=== PATIENT | male | born 1970 | race Two or more races ===

== ENCOUNTER 2022-03-21 14:17 | Emergency (ER) | payer MEDICAID ==
[~2022-03-21] VITALS: Ht 170.2 cm; Wt 81.6 kg
[2022-03-21 14:38] VITALS: BP 105/65
--- NOTE | 2022-03-21 15:00 | NUR ---
Patient discharged to home in stable condition. Written and verbal after care instructions given. Patient verbalizes understanding of instruction. Addendum: 03/21/22 at 1514 by JESUS PATIENT [facility] [id number]
== END 2022-03-21 15:10 | disposition home or self-care (01) ==
LOC: ER 14:24
DX: Z60.2 Problems related to living alone (principal); Z90.89 Acquired absence of other organs

== ENCOUNTER 2023-11-27 09:28 | Emergency (ER) | payer MEDICAID, OTHER ==
[~2023-11-27] VITALS: Ht 167.6 cm; Wt 89.4 kg
[2023-11-27 09:36] VITALS: TEMP 98.5
[2023-11-27] MEDS ORDERED: ASPIRIN 325 MG TABLET ONE (09:53)
[2023-11-27] MEDS ORDERED: NITROGLYCERIN 0.4 MG/TAB BOTTLE ONE (09:53)
[2023-11-27] MEDS: ASPIRIN 325 MG TABLET PO ONE (10:01)
[2023-11-27] MEDS: NITROGLYCERIN 0.4 MG/TAB BOTTLE SL ONE (10:03)
[2023-11-27 10:14] LABS: BASOPHILS % (AUTO) 0.3 % (0.0-2.0); EOSINOPHILS # (AUTO) 0.1 K/uL (0.0-0.7); EOSINOPHILS % (AUTO) 1.6 % (0.0-6.0); HEMATOCRIT 45 % (39-51); HEMOGLOBIN 15.6 g/dL (13.5-17.5); LYMPHOCYTES % (AUTO) 35.4 % (20.0-44.0); MEAN CORPUSCULAR HEMOGLOBIN 32 PG (26.0-33.0); MEAN CORPUSCULAR HGB CONC 34 g/dl (31.0-36.0); MEAN CORPUSCULAR VOLUME 92 fL (80-96); MONOCYTES # (AUTO) 0.5 K/uL (0.1-1.30); MONOCYTES % (AUTO) 8.2 % (2.0-12.0); NEUTROPHILS % (AUTO) 54.5 % (43.0-81.0); PLATELET COUNT (AUTO) 181 K/uL (150-450); RED BLOOD CELL COUNT(AUTO) 4.94 MIL/uL (4.5-6.0); RED CELL DISTRIBUTION WIDTH 13.9 % (11.5-15.0); WHITE BLOOD COUNT (AUTO) 5.5 K/uL (4.3-11.0)
[2023-11-27 10:17] LABS: CARBON DIOXIDE 24 mmol/L (21-32); CHLORIDE 103 mmol/L (98-107); CREATININE 0.9 mg/dL (0.6-1.3); GLUCOSE 104 mg/dL (74-106); POTASSIUM 3.9 mmol/L (3.5-5.1); SODIUM SERUM 138 mmol/L (136-145); UREA NITROGEN, BLOOD 12 mg/dL (7-18)
[2023-11-27 10:33] LABS: NT-PRO BNP 6 pg/mL (0-125)
[2023-11-27 19:54] VITALS: BP 125/77; O2SAT 99
== END 2023-11-27 22:13 | disposition short-term general hospital (02) ==
LOC: ER 09:28
DX: R07.9 Chest pain, unspecified (principal); E78.00 Pure hypercholesterolemia, unspecified; Z60.2 Problems related to living alone
CPT/HCPCS: 36415; 71045-TC; 80048-TC; 83880; 84484-TC; 85025-TC